=== PATIENT | male | born 1970 | race Two or more races ===

== ENCOUNTER 2016-12-20 19:05 | Emergency (ER) | payer SELFPAY ==
[~2016-12-20] VITALS: Ht 165.1 cm; Wt 77.0 kg
[2016-12-20] MEDS ORDERED: METF500T4 PO (19:40)
[2016-12-20] MEDS ORDERED: [UNRECOGNIZED DRUG - REMARK] PO (19:40)
[2016-12-20 21:23] VITALS: BP 140/85
[2016-12-20] MEDS ORDERED: CYCLOBENZAPRINE HCL 10 MG TABLET PO ONE (23:00)
[2016-12-20] MEDS ORDERED: IBUPROFEN 800 MG TABLET PO ONE (23:00)
== END 2016-12-20 23:17 | disposition home or self-care (01) ==
LOC: EMS 19:07 → EDBD 19:07 → EMS 23:17
DX: S39.012A Strain of muscle, fascia and tendon of lower back, initial encounter (principal); S29.012A Strain of muscle and tendon of back wall of thorax, initial encounter; E11.9 Type 2 diabetes mellitus without complications; E78.00 Pure hypercholesterolemia, unspecified; I10 Essential (primary) hypertension; V49.40XA Driver injured in collision with unspecified motor vehicles in traffic accident, initial encounter; Y93.89 Activity, other specified; Y92.89 Other specified places as the place of occurrence of the external cause; Y99.8 Other external cause status
CPT/HCPCS: 82962; 99283

== ENCOUNTER 2017-06-17 00:38 | Emergency (ER) | payer MEDICAID ==
[~2017-06-17] VITALS: Ht 165.1 cm; Wt 90.9 kg
[~2017-06-17 00:38] MED LIST: METF500T4 PO; [UNRECOGNIZED DRUG - REMARK] PO
[2017-06-17] MEDS ORDERED: ATOR20TA86 PO (01:00)
[2017-06-17] MEDS ORDERED: NPH,100V SQ (01:00)
[2017-06-17] MEDS ORDERED: LISI-662 PO (01:00)
[2017-06-17] MEDS ORDERED: ASPI81 PO (01:00)
[2017-06-17] MEDS ORDERED: INSNOV SQ (01:00)
[2017-06-17 01:02] LABS: GLUCOSE,POINT OF CARE 94 MG/DL (70-110)
[2017-06-17] MEDS ORDERED: ACETAMINOPHEN/CODEINE 300-30 MG TABLET PO ONE (01:30)
[2017-06-17] MEDS ORDERED: KETOROLAC TROMETHAMINE 60 MG/2 ML VIAL IM ONE (01:30)
[2017-06-17 03:21] VITALS: BP 134/87
== END 2017-06-17 03:45 | disposition home or self-care (01) ==
LOC: EMS 00:41
DX: R20.2 Paresthesia of skin (principal); R20.0 Anesthesia of skin; I10 Essential (primary) hypertension; E78.00 Pure hypercholesterolemia, unspecified; E11.9 Type 2 diabetes mellitus without complications; Z79.4 Long term (current) use of insulin
CPT/HCPCS: 71010; 72040; 72070; 82962; 96372; 99284; J1885

== ENCOUNTER 2018-02-14 20:20 | Emergency (ER) | payer MEDICAID ==
[~2018-02-14] VITALS: Ht 157.5 cm; Wt 100.0 kg
[~2018-02-14 20:20] MED LIST changes: +ASPI81 PO; +ATOR20TA86 PO; +INSNOV SQ; +LISI-662 PO; -METF500T4 PO; +METF500T6 PO; +NPH,100V SQ; -[UNRECOGNIZED DRUG - REMARK] PO
[2018-02-14 20:38] LABS: GLUCOSE,POINT OF CARE 194 MG/DL (70-110)
[2018-02-14] MEDS ORDERED: HYDROCODONE/ACETAMINOPHEN 5-325 MG TABLET PO ONE (22:15)
[2018-02-14] MEDS ORDERED: KETOROLAC TROMETHAMINE 60 MG/2 ML VIAL IM ONE (22:15)
[2018-02-14 22:52] VITALS: BP 142/88
== END 2018-02-14 22:53 | disposition home or self-care (01) ==
LOC: EMS 20:21
DX: S39.012A Strain of muscle, fascia and tendon of lower back, initial encounter (principal); M54.41 Lumbago with sciatica, right side; E11.9 Type 2 diabetes mellitus without complications; I10 Essential (primary) hypertension; E78.00 Pure hypercholesterolemia, unspecified; Z79.4 Long term (current) use of insulin; X50.9XXA Other and unspecified overexertion or strenuous movements or postures, initial encounter; Y93.89 Activity, other specified; Y92.89 Other specified places as the place of occurrence of the external cause; Y99.8 Other external cause status
CPT/HCPCS: 82962; 96372; 99283; J1885

== ENCOUNTER 2022-09-11 23:57 | Emergency (ER) | payer MEDICAID, OTHER ==
[~2022-09-11] VITALS: Ht 165.1 cm; Wt 100.0 kg
[~2022-09-11 23:57] MED LIST changes: +ASPI-1450 PO; -ASPI81 PO; -LISI-662 PO; +LISI-894 PO; +METF-1211 PO; -METF500T6 PO
[2022-09-12] MEDS ORDERED: IBUPROFEN 600 MG TABLET PO ONE (00:30)
[2022-09-12] MEDS ORDERED: GuaiFENesin/D-METHORPHAN [SUGAR-FREE] 200-20MG/10 ML SYRUP UDCUP PO ONE (00:30)
[2022-09-12] MEDS ORDERED: ACETAMINOPHEN/CODEINE 300-30 MG TABLET PO ONE (00:30)
[2022-09-12 00:47] VITALS: BP 158/96
[2022-09-12 00:50] LABS: COVID AG,FIA SOURCE NASOPHARYNGEAL
[2022-09-12 00:51] LABS: HEMATOCRIT 40.6 % (41-53); HEMOGLOBIN 13.5 g/dL (13.5-17.5); MEAN CORPUSCULAR HEMOGLOBIN 28.7 pg (26.0-34.0); RED CELL DISTRIBUTION WIDTH 14.5 % (11.5-14.5)
[2022-09-12 00:58] LABS: EOSINOPHILS % (AUTO) 1.8 % (1.0-6.0); LYMPHOCYTES % (AUTO) 20.4 % (22.0-44.0); MEAN CORPUSCULAR HGB CONC 33.2 G/dL (31.0-37.0); MEAN CORPUSCULAR VOLUME 86 fL (80-100); MONOCYTES # (AUTO) 1.1 K/uL (0.1-1.0); MONOCYTES % (AUTO) 10.9 % (2.0-9.0); NEUTROPHILS # (AUTO) 6.6 K/uL (1.8-7.7); NEUTROPHILS % (AUTO) 65.9 % (40.0-70.0); PLATELET COUNT (AUTO) 190 K/uL (150-450)
[2022-09-12 01:06] LABS: ANION GAP 10 mmol/L (8-16); CALCIUM, TOTAL 8.9 mg/dL (8.8-10.5); CARBON DIOXIDE 26 mmol/L (22-29); CHLORIDE 96 mmol/L (98-107); CREATININE 1.21 mg/dL (0.60-1.30); GLUCOSE,RANDOM 298 mg/dL (70-110); POTASSIUM 3.7 mmol/L (3.5-5.1); SODIUM SERUM 132 mmol/L (136-145); UREA NITROGEN, BLOOD 17 mg/dL (7-18)
[2022-09-12 01:07] LABS: GLOMERULAR FILTR. RATE CALC > 60 mL/min (>60)
[2022-09-12 01:12] LABS: ALANINE AMINOTRANSFERASE 39 U/L (12-78); ALBUMIN 3.5 g/dL (3.4-5.0); ALKALINE PHOSPHATASE 92 U/L (46-116); ASPARTATE AMINOTRANSFERASE 9 U/L (15-37); BILIRUBIN,TOTAL 0.6 mg/dL (0.1-1.0); TOTAL PROTEIN, SERUM 7.7 g/dL (6.4-8.2)
[2022-09-12 01:37] LABS: INFLUENZA TYPE A NEGATIVE FOR TYPE A (NEGATIVE); INFLUENZA TYPE B NEGATIVE FOR TYPE B (NEGATIVE)
[2022-09-12] MEDS ORDERED: IBUP-1554 PO (01:46)
[2022-09-12] MEDS ORDERED: GUAIFDM PO (01:46)
[2022-09-12] MEDS ORDERED: ACET-66 PO (01:46)
== END 2022-09-12 01:50 | disposition home or self-care (01) ==
LOC: EMS 23:58
DX: J06.9 Acute upper respiratory infection, unspecified (principal); E11.65 Type 2 diabetes mellitus with hyperglycemia; E78.00 Pure hypercholesterolemia, unspecified; I10 Essential (primary) hypertension; Z20.822 Contact with and (suspected) exposure to COVID-19
CPT/HCPCS: 80053; 82962; 84484; 85025; 87804; 99284